=== PATIENT | male | born 1990 | race African-American/Black ===

== ENCOUNTER 2022-12-30 13:29 | Outpatient (CLI) | payer MEDICARE, MEDICAID, SELFPAY | END 2022-12-30 13:30 | disposition home or self-care (01) | LOC: ANHBWCAUD 13:30 | PROVIDERS: PCP Family Medicine; Visit Provider Family Medicine | DX: Z01.10 Encounter for examination of ears and hearing without abnormal findings (principal) | CPT/HCPCS: 92552; 92556; 92567 ==